=== PATIENT | male | born 1985 | race American Indian/Alaskan Native ===

== ENCOUNTER 2016-10-17 05:11 | Emergency (ER) | payer MEDICAID ==
--- NOTE | 2016-10-17 05:30 | ED Physician Documentation ---
PD HPI SEIZURE - Stated complaint Stated Complaint: SEIZURE,CONFUSION - Chief complaint Chief Complaint: Neuro - History obtained from History obtained from: Patient, Friend - History of Present Illness Timing - onset: Today (he awoke with abrasions to the tongue and feeling muscles aches; believes that he had a seizure. He says he has had seizures intermittently for about 5 years related to alcohol use or withdrawal. He had been drinking regularly until a few days ago when he stopped, and has been feeling shaky still. Has been drinking fluids. Denies head injury, fevers. He initially said he also was using Dex (cough syrup) the past couple of days, but then said he was not when I asked again.) Witnessed: Unwitnessed Number of seizures: Single Description of seizure activity: Generalized Injury during seizure: Bit tongue. No: Head injury Associated symptoms: No: Headache, Dyspnea, Nausea / vomiting History of seizures: Prior EtOH wdrawal sz. No: Prior TBI Contributing factors: Substance abuse (possibly with use of cough syrup as well) , EtOH withdrawal. No: Fever Similar symptoms before: Diagnosis (alcohol or alcohol withdrawal seizures) Recently seen: Not recently seen Review of Systems Constitutional: denies: Fever Nose: denies: Rhinorrhea / runny nose, Congestion Throat: denies: Sore throat Respiratory: denies: Cough GI: reports: Nausea. denies: Abdominal Pain, Vomiting, Diarrhea : denies: Dysuria Skin: denies: Rash, Lesions, Laceration (s) Neurologic: denies: Altered mental status, Headache, Head injury Psychiatric: reports: Anxiety. denies: Depressed Endocrine: denies: Weight loss Immunocompromised: denies: Immunocompromised PD PAST MEDICAL HISTORY - Past Medical History Past Medical History: Yes Cardiovascular: None Respiratory: None Neuro: Seizure disorder Endocrine/Autoimmune: None GI: None : None HEENT: None Psych: None Musculoskeletal: None Derm: None - Past Surgical History Past Surgical History: No - Present Medications Home Medications: Ambulatory Orders Medication Instructions Recorded Confirmed Dicyclomine [Bentyl] 20 mg PO TID #15 capsule 10/17/16 Lorazepam [Ativan] 1 mg PO Q6H PRN #20 tablet 10/17/16 chlordiazePOXIDE [Librium] 50 mg PO Q6H #20 capsule 10/17/16 cloNIDine [Catapres] 0.1 mg PO BID #10 tablet 10/17/16 - Allergies Allergies/Adverse Reactions: Allergies Allergy/AdvReac Type Severity Reaction Status Date / Time No Known Drug Allergies Allergy Verified 10/17/16 05:42 - Living Situation Living Situation: reports: With friend(s) Living Arrangement: reports: Other (recently moved here from [facility]) - Social History Does the pt smoke?: No Smoking Status: Current some day smoker Does the pt drink ETOH?: Yes ETOH Use: Liquor Does the pt have substance abuse?: No - Family History Family history: reports: Non contributory - Immunizations Immunizations are current?: Yes PD ED PE NORMAL - Vitals Vital signs reviewed: Yes - General General: Alert and oriented X 3, Well developed/nourished, Other (mildly shaky/ tremors) - HEENT HEENT: Atraumatic, Other (abrasion left side of tongue, no bleeding at this time. ) - Neck Neck: Supple, no meningeal sign, No adenopathy - Cardiac Cardiac: RRR (mild tachycardia), No murmur - Respiratory Respiratory: Clear bilaterally - Abdomen Abdomen: Normal bowel sounds, Soft, Non tender, Non distended, No organomegaly - Back Back: No CVA TTP - Derm Derm: Normal color, Warm and dry - Extremities Extremities: No tenderness to palpate, Normal ROM s pain, No edema, No calf tenderness / cord - Neuro Neuro: Alert and oriented X 3, No motor deficit, Normal speech - Psych Psych: Normal mood Results - Vitals Vitals: Vital Signs - 24 hr 10/17/16 05:17 Temperature 36.4 C L Heart Rate 106 H Respiratory 15 Rate Blood Pressure 148/83 H O2 Saturation 99 Oxygen O2 Source Room air - Labs Labs: Laboratory Tests 10/17/16 10/17/16 10/17/16 05:48 05:48 05:50 WBC 6.1 RBC 3.93 L Hgb 14.0 Hct 40.3 L MCV 102.5 H MCH 35.5 H MCHC 34.6 RDW 14.1 Plt Count 157 MPV 7.8 Neut # 4.0 Lymph # 1.1 L [place] # 0.8 Eos # 0.0 Baso # 0.1 Absolute Nucleated RBC 0.00 Nucleated RBCs 0.0 Sodium 133 L Potassium 3.1 L Chloride 94 L Carbon Dioxide 25 Anion Gap 14.0 H BUN 17 Creatinine 0.9 Estimated GFR (MDRD) 98 Glucose 93 Calcium 9.8 Magnesium 2.2 Total Bilirubin 1.0 AST 70 H ALT 36 Alkaline Phosphatase 52 Total Protein 7.5 Albumin 4.4 Globulin 3.1 Albumin/Globulin Ratio 1.4 Lipase 470 H Urine Color YELLOW Urine Clarity CLEAR Urine pH 7.0 Ur Specific [place] 1.015 Urine Protein 30 H Urine Glucose (UA) NEGATIVE Urine Ketones 40 H Urine Occult Blood NEGATIVE Urine Nitrite NEGATIVE Urine Bilirubin NEGATIVE Urine Urobilinogen 0.2 (NORMAL) Ur Leukocyte Esterase NEGATIVE Urine RBC 0-5 Urine WBC 0-3 Ur Squamous Epith Cells NONE SEEN Urine Bacteria None Seen Ur Microscopic Review INDICATED Urine Culture Comments NOT INDICATED Urine Opiates Screen NEGATIVE Ur Oxycodone Screen NEGATIVE Urine Methadone Screen NEGATIVE Ur Propoxyphene Screen NEGATIVE Ur Barbiturates Screen NEGATIVE Ur Tricyclics Screen NEGATIVE Ur Phencyclidine Scrn NEGATIVE Ur Amphetamine Screen NEGATIVE U Methamphetamines Scrn NEGATIVE U Benzodiazepines Scrn NEGATIVE Urine Cocaine Screen NEGATIVE U Cannabinoids Screen NEGATIVE Ethyl Alcohol < 5.0 PD MEDICAL DECISION MAKING - ED course Complexity details: reviewed results, considered differential (presume alcohol withdrawal seizure, with shakiness. He says he has not had alcohol for a week, but he still seems shaky for that. Gave Ativan PO and will have SW talk with him about potential detox programs. He does not seem florid enough withdrawal to need admission medically. Elevated lipase but is not having abdominal pain/ tenderness. Can treat with oral medications and clear fluids diet. Having SW look into Crisis bed or Detox bed. ), d/w patient, d/w tour consultant (Administration Dean was able to get patient a bed available for transfer at [facility] facility, and arranged transfer via [facility]. The facility asked for medications be filled (patient's friend will go to pharmacy right now while awaiting ambulance) and brought with him. I printed these out for them to get filled. ) Departure - Departure Disposition: 02 Transfer Acute Care Hosp Clinical Impression: Elevated lipase Alcohol withdrawal Qualifiers: Complication of substance-induced condition: uncomplicated Qualified Code(s): F10.230 - Alcohol dependence with withdrawal, uncomplicated Alcohol withdrawal seizure Qualifiers: Complication of substance-induced condition: uncomplicated Qualified Code(s): F10.230 - Alcohol dependence with withdrawal, uncomplicated Condition: Stable Record reviewed to determine appropriate education?: Yes Instructions: ED Withdrawal Alcohol Prescriptions: Lorazepam [Ativan] 1 mg PO Q6H PRN #20 tablet PRN Reason: Anxiety Dicyclomine [Bentyl] 20 mg PO TID #15 capsule cloNIDine [Catapres] 0.1 mg PO BID #10 tablet chlordiazePOXIDE [Librium] 50 mg PO Q6H #20 capsule Comments: Librium every 6 hours. Add Ativan every 6 hours if needed for withdrawal. Dicyclomine for cramps and nausea. Clonidine twice daily. No alcohol use. Drink lots of fluids. Clear liquids/bland food for the next week.
[2016-10-17] MEDS ORDERED: LORazepam 0.5 MG TABLET PO STA ×3 (05:40→07:59)
[2016-10-17] MEDS ORDERED: LORazepam 0.5 MG TABLET ONE ×3 (05:44→08:11)
[2016-10-17 05:55] LABS: BASOPHILS # (AUTO) 0.1 10^3/uL (0.0-0.1); BASOPHILS % (AUTO) 1.2 %; EOSINOPHILS % (AUTO) 0.5 %; HCT - HEMATOCRIT 40.3 % (42.0-52.0); LYMPHOCYTES # (AUTO) 1.1 10^3/uL (1.5-3.5); LYMPHOCYTES % (AUTO) 17.9 %; MEAN CORPUSCULAR HEMOGLOBIN 35.5 pg (27.0-31.0); MEAN CORPUSCULAR HGB CONC 34.6 g/dL (32.0-36.0); MEAN CORPUSCULAR VOLUME 102.5 fL (80.0-94.0); MEAN PLATELET VOLUME 7.8 fL (7.4-11.4); MONOCYTES # (AUTO) 0.8 10^3/uL (0.0-1.0); MONOCYTES % (AUTO) 13.7 %; NEUTROPHILS % (AUTO) 66.7 %; RED BLOOD COUNT 3.93 10^6/uL (4.70-6.10); RED CELL DISTRIBUTION WIDTH 14.1 % (12.0-15.0); UNCORRECTED WHITE BLOOD COUNT 6.1 x10^3/uL; WHITE BLOOD COUNT 6.1 x10^3/uL (4.8-10.8)
[2016-10-17 06:18] LABS: BILIRUBIN,URINE NEGATIVE (NEGATIVE); UA w/ MICROSCOPIC CHARGE YES; UR CULTURE IF IND NOT INDICATED; WBC,URINE 0-3 /HPF (0-3)
[2016-10-17 06:29] LABS: ALBUMIN/GLOBULIN RATIO 1.4 (1.0-2.2); BUN - BLOOD UREA NITROGEN 17 mg/dL (6-20); CALCIUM 9.8 mg/dL (8.5-10.3); CARBON DIOXIDE - CO2 25 mmol/L (21-32); CHLORIDE 94 mmol/L (101-111); CREATININE 0.9 mg/dL (0.6-1.2); GFR - MDRD 98 (>89); GLUCOSE 93 mg/dL (70-100); LIPASE 470 U/L (22-51); MAGNESIUM 2.2 mg/dL (1.7-2.8); POTASSIUM 3.1 mmol/L (3.5-5.0); SODIUM 133 mmol/L (135-145); TOTAL PROTEIN 7.5 g/dL (6.7-8.2)
[2016-10-17] MEDS ORDERED: POTASSIUM BICARB 25 MEQ TABLET PO STA (06:43)
[2016-10-17] MEDS ORDERED: POTASSIUM BICARB 25 MEQ TABLET PO ONE (07:04)
[2016-10-17] MEDS ORDERED: cloNIDine 0.1 MG TABLET PO STA (09:27)
[2016-10-17] MEDS ORDERED: cloNIDine 0.1 MG TABLET ONE (09:43)
[2016-10-17 11:32] VITALS: BP 138/88
== END 2016-10-17 11:20 | disposition short-term general hospital (02) ==
LOC: ED 05:11
DX: R74.8 Abnormal levels of other serum enzymes (principal); F10.230 Alcohol dependence with withdrawal, uncomplicated; F17.200 Nicotine dependence, unspecified, uncomplicated
CPT/HCPCS: 36415; 80053; 80306; 80320; 81001; 83690; 83735; 85025; 99285; A9270; 81003; 87086; 99284